=== PATIENT | female | born 1940 | race Hispanic/Latino ===

== ENCOUNTER 2016-05-28 15:38 | Inpatient (IN) | payer MEDICARE ==
[2016-05-28 18:10] LABS: Basophils % (Auto) 0.3 % (0.0-1.8); Eosinophils % (Auto) 0.8 % (0.0-4.3); Hematocrit 40.8 % (30.3-42.9); Hemoglobin 13.6 gm/dl (10.1-14.3); Mean Corpuscular HGB Conc 33 % (30-34); Mean Corpuscular Hemoglobin 31 pg (28-32); Mean Corpuscular Volume 93 fl (79-97); Platelet Count 246 K/mm3 (140-440); Red Cell Distribution Width 13.4 % (13.2-15.2); White Blood Count 15.5 K/mm3 (4.5-11.0)
[2016-05-28 18:24] LABS: Anion Gap 18 mmol/L; BUN/Creatinine Ratio 24.28; Blood Urea Nitrogen 17 mg/dL (7-17); Calcium 9.8 mg/dL (8.4-10.2); Carbon Dioxide 23 mmol/L (22-30); Glucose 110 mg/dL (65-100); Potassium 4.6 mmol/L (3.6-5.0); Sodium 132 mmol/L (137-145)
[2016-05-28 18:31] LABS: Creatine Kinase MB 3.3 ng/mL (0.0-4.0)
[2016-05-28] MEDS ORDERED: NACL ONE (20:10)
[2016-05-28] MEDS ORDERED: ATIVAN IV ONE (20:36)
--- NOTE | 2016-05-28 21:27 | Cat Scan Report ---
FINAL REPORT PROCEDURE: CT ANGIO CHEST TECHNIQUE: Computerized tomographic angiography of the chest was performed after the IV injection of iodinated nonionic contrast including image processing. The image data was postprocessed using 2-dimensional multiplanar reformatted (MPR) and 3-dimensional (MIP and/or volume rendered) techniques. HISTORY: elevated ddimer chest pain. Evaluate pulmonary embolus COMPARISON: No prior studies are available for comparison. FINDINGS: Pulmonary outflow tract, right and left main pulmonary arteries and their proximal branches: Clear, no filling defects seen to suggest pulmonary embolus. Pericardium: No evidence of pericardial effusion. Thoracic aorta: Mild atherosclerotic changes are visualized. No aneurysm or dissection is seen. Coronary arteries: Small calcifications are visualized in the coronary arteries indicating atherosclerotic disease. Mediastinum and hilar regions: Nonspecific subcentimeter lymph nodes are visualized. No pathologically enlarged lymph nodes or masses are identified. Several small calcified lymph nodes are seen overlying the right hilum. Lung Mike: Clear with the exception of a 1 centimeter air cyst in the lingula. Upper abdomen: A large hiatal hernia is present. No acute abnormality is seen in the upper abdomen. Other: None IMPRESSION: No evidence of pulmonary embolus. Prior granulomatous disease. Large hiatal hernia is present. Atherosclerosis coronary arteries.
[2016-05-28] MEDS ORDERED: NORMODYNE 200 MG in D5W 160 ML IV ONE (21:50)
[2016-05-28] MEDS ORDERED: CARDENE DRIP 40 MG/200 ML 40 MG/200 ML BAG IV SCH (22:00)
--- NOTE | 2016-05-28 22:06 | Emergency Department Report ---
ED Chest Pain HPI - General Chief Complaint: Chest Pain Stated Complaint: CHEST PAIN Time Seen by Provider: 05/28/16 20:09 Source: patient Mode of arrival: Ambulatory Limitations: No Limitations - History of Present Illness Initial Comments: 76-year-old female with a past medical history of hypertension and elevated cholesterol presents to the hospital complains of left-sided chest pain workup with days. Pain is in the left chest area under the left breast, sharp, intermittent, and it radiated 4/10 in intensity. Pain is worse with deep inspiration and movement and certain positions. Patient denies associated shortness of breath, nausea, vomiting, diaphoresis, or cough. reports that recently patient was helping with yardwork and pushing and pulling heavy objects which could have contributed to her pain. Patient states she walked 2.4 miles yesterday at the gym without any difficulty. Patient was sent to the ER for evaluation by Dr. Modi fashion designer and Dr. Bennett her primary care doctor was also aware. Dr. Montes called the ED prior to my shift and explained that pt needed evaluation for PE and evaluation for abnormal stress test. Severity scale (0 -10): 4 - Related Data Allergies Allergy/AdvReac Type Severity Reaction Status Date / Time codeine AdvReac Headache Verified 05/28/16 15:55 diazepam [From Valium] AdvReac Unknown Verified 05/28/16 15:55 STIVEN score - Stiven Score Age > 65: (1) Yes Aspirin use within the Past 7 Days: (1) Yes 3 or more CAD Risk Factors: (1) Yes 2 or more Angina events in past 24 hrs: (1) Yes Known CAD with more than 50% Stenosis: (0) No Elevated Cardiac Markers: (0) No ST Deviation Greater than 0.5mm: (0) No STIVEN Score: 4 ED Review of Systems ROS: Stated complaint: CHEST PAIN Other details as noted in HPI Comment: All other systems reviewed and negative Other: Constitutional: No fevers chills or weight loss Eyes: No eye pain visual changes or discharge ENT: No ear pain or throat pain Neck: Denies pain Respiratory: Denies cough wheezing shortness of breath Cardiovascular: as per hpi GI: Denies abdominal pain : Denies dysuria, urinary frequency Musculoskeletal: Denies back pain, joint swelling Skin: Denies rash, lesions, erythema Neurologic: Denies headache, numbness, weakness Psychiatric: Denies suicidal ideation, hallucinations ED Past Medical Hx - Past Medical History Previous Medical History?: Yes Hx Hypertension: Yes Additional medical history: Elevated cholesterol - Surgical History Past Surgical History?: No - Social History Smoking Status: Never Smoker Substance Use Type: None ED Physical Exam - General Limitations: No Limitations - Other Other exam information: General: No limitations, patient is alert in no acute distress Head exam: Atraumatic, normocephalic Eyes exam: Normal appearance, pupils equal reactive to light, extraocular movements intact ENT: Moist mucous membrane, normal oropharynx Neck exam: Normal inspection, full range of motion Respiratory exam: Clear to auscultation bilateral, no wheezes, rales, crackles Cardiovascular: Normal rate and rhythm, chest wall nontender Abdomen: Soft, nondistended, and nontender, with normal bowel sounds, no rebound, or guarding Extremity: Full range of motion normal inspection no deformity, no calf tenderness or edema Back: Normal Inspection, full range of motion, no tenderness Neurologic: Alert, oriented x3, cranial nerves intact, no motor or sensory deficit Psychiatric: normal affect, normal mood Skin: Warm, dry, intact ED Course Vital Signs 05/28/16 05/28/16 05/28/16 15:50 20:12 20:13 Temperature 98.2 F Pulse Rate 73 101 H 95 H Respiratory 22 19 15 Rate Blood Pressure 148/63 182/72 O2 Sat by Pulse 94 97 97 Oximetry 05/28/16 05/28/16 05/28/16 20:15 20:17 20:19 Temperature Pulse Rate 100 H 94 H 91 H Respiratory 20 17 17 Rate Blood Pressure 184/89 184/89 184/89 O2 Sat by Pulse Oximetry 05/28/16 05/28/16 05/28/16 20:21 20:23 20:25 Temperature Pulse Rate 92 H 89 89 Respiratory 18 17 20 Rate Blood Pressure 184/89 184/89 184/89 O2 Sat by Pulse Oximetry 05/28/16 05/28/16 05/28/16 20:27 20:30 20:32 Temperature Pulse Rate 96 H 100 H 97 H Respiratory 17 17 15 Rate Blood Pressure 184/89 184/89 184/95 O2 Sat by Pulse Oximetry 05/28/16 05/28/16 05/28/16 20:33 20:34 20:45 Temperature Pulse Rate 96 H 98 H Respiratory 18 15 18 Rate Blood Pressure 184/95 184/95 O2 Sat by Pulse 98 Oximetry - Reevaluation(s) Reevaluation #1: 05/29/16 pt received ativan 0.5 mg due to nervousness. she reported improvement in sx. no allergic reaction noted 05/29/16 00:17 - Consultations Consultation #1: 05/29/16 DR Bennett called the department and spoke to me and I informed him of positive d-dimer and. She will be going to CT angiogram and admission. ED Medical Decision Making - Lab Data Result diagrams: 05/28/16 17:46 05/28/16 17:46 Lab Results 05/28/16 05/28/16 05/28/16 Range/Units 17:46 17:46 17:46 WBC 15.5 H (4.5-11.0) K/mm3 RBC 4.40 (3.65-5.03) M/mm3 Hgb 13.6 (10.1-14.3) gm/dl Hct 40.8 (30.3-42.9) % MCV 93 (79-97) fl MCH 31 (28-32) pg MCHC 33 (30-34) % RDW 13.4 (13.2-15.2) % Plt Count 246 (140-440) K/mm3 Lymph % (Auto) 15.6 (13.4-35.0) % Barren % (Auto) 6.4 (0.0-7.3) % Eos % (Auto) 0.8 (0.0-4.3) % Baso % (Auto) 0.3 (0.0-1.8) % Lymph # 2.4 (1.2-5.4) K/mm3 [place] # 1.0 H (0.0-0.8) K/mm3 Eos # 0.1 (0.0-0.4) K/mm3 Baso # 0.0 (0.0-0.1) K/mm3 Seg Neutrophils % 76.9 H (40.0-70.0) % Seg Neutrophils # 12.0 H (1.8-7.7) K/mm3 D-Dimer 308.85 H (0-234) ng/mlDDU Sodium 132 L (137-145) mmol/L Potassium 4.6 (3.6-5.0) mmol/L Chloride 96.0 L (98-107) mmol/L Carbon Dioxide 23 (22-30) mmol/L Anion Gap 18 mmol/L BUN 17 (7-17) mg/dL Creatinine 0.7 (0.7-1.2) mg/dL Estimated GFR > 60 ml/min BUN/Creatinine Ratio 24.28 % Glucose 110 H (65-100) mg/dL Calcium 9.8 (8.4-10.2) mg/dL Total Creatine Kinase (30-135) units/L CK-MB (CK-2) (0.0-4.0) ng/mL CK-MB (CK-2) Rel Index (0-4) Troponin T < 0.010 (0.00-0.029) ng/mL 05/28/16 05/28/16 Range/Units 17:46 19:13 WBC (4.5-11.0) K/mm3 RBC (3.65-5.03) M/mm3 Hgb (10.1-14.3) gm/dl Hct (30.3-42.9) % MCV (79-97) fl MCH (28-32) pg MCHC (30-34) % RDW (13.2-15.2) % Plt Count (140-440) K/mm3 Lymph % (Auto) (13.4-35.0) % Barren % (Auto) (0.0-7.3) % Eos % (Auto) (0.0-4.3) % Baso % (Auto) (0.0-1.8) % Lymph # (1.2-5.4) K/mm3 Barren # (0.0-0.8) K/mm3 Eos # (0.0-0.4) K/mm3 Baso # (0.0-0.1) K/mm3 Seg Neutrophils % (40.0-70.0) % Seg Neutrophils # (1.8-7.7) K/mm3 D-Dimer (0-234) ng/mlDDU Sodium (137-145) mmol/L Potassium (3.6-5.0) mmol/L Chloride (98-107) mmol/L Carbon Dioxide (22-30) mmol/L Anion Gap mmol/L BUN (7-17) mg/dL Creatinine (0.7-1.2) mg/dL Estimated GFR ml/min BUN/Creatinine Ratio % Glucose (65-100) mg/dL Calcium (8.4-10.2) mg/dL Total Creatine Kinase 145 H (30-135) units/L CK-MB (CK-2) 3.3 (0.0-4.0) ng/mL CK-MB (CK-2) Rel Index 2.2 (0-4) Troponin T < 0.010 (0.00-0.029) ng/mL - EKG Data -: EKG Interpreted by Me (nsr rate 75, no stemi, no t inv) - EKG Data When compared to previous EKG there are: previous EKG unavailable - Radiology Data Radiology results: image reviewed (cxr: naf) - Medical Decision Making Patient's chest pain sounds atypical in nature. EKG, cardiac enzymes, and CT angiogram in the ED are unremarkable. Patient be admitted for further cardiology evaluation. - Differential Diagnosis PE, HI, unstable angina, atypical chest pain, chest strain Critical Care Time: No Critical care attestation.: If time is entered above; I have spent that time in minutes in the direct care of this critically ill patient, excluding procedure time. ED Disposition Clinical Impression: Chest pain, HTN (hypertension), Hiatal hernia Disposition: OP ADMITTED IP TO THIS HOSP Is pt being admited?: Yes Condition: Stable Time of Disposition: 22:06 (Dr Acevedo/hosp)
[2016-05-28] MEDS ORDERED: SODIUM CHLORIDE FLUSH SYRINGE 10 ML IV PRN (22:33)
[2016-05-28] MEDS ORDERED: MILK OF MAGNESIA PO PRN (22:33)
[2016-05-28] MEDS ORDERED: DULCOLAX PR PRN (22:33)
[2016-05-28] MEDS ORDERED: MORPHINE IV PRN (22:33)
[2016-05-28] MEDS ORDERED: TYLENOL PO PRN (22:33)
[2016-05-28] MEDS ORDERED: ZOFRAN IV PRN (22:33)
--- NOTE | 2016-05-28 22:33 | History and Physical Report ---
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 Patient states she was doing some yardwork, push a heavy trash can, after which she started developed chest pain. Pain is in the left substernal area which she describes as indigestion feeling. She took some medication for rate and felt better. Her symptoms returned this morning and worsened around lunchtime. She describes that her pleuritic chest pain, intermittent, worse with movement , intensity 5/10, no radiation. She denies nausea vomiting, diaphoresis or palpitation. She saw her money room teller who did a stress test and it was intermediate Patient denies cough, abdominal pain, hematochezia, dysuria, frequency, focal weakness, dysarthria, fever chills, polydipsia polyuria, hot or cold intolerance , easy bruisability, or rash or bleeding from mucosal membrane, rhinorrhea, epistaxis, earache, tinnitus, blurry vision, eye discharge, anxiety, depression. Other review of systems negative PAST SURGICAL HISTORY: None SOCIAL HISTORY: Denies alcohol, tobacco, drugs FAMILY HISTORY: Hypertension Medications and Allergies Allergies Allergy/AdvReac Type Severity Reaction Status Date / Time codeine AdvReac Headache Verified 05/28/16 15:55 diazepam [From Valium] AdvReac Unknown Verified 05/28/16 15:55 Home Medications Medication Instructions Recorded Confirmed Last Taken Type Amlodipine Besylate [Norvasc] 5 mg PO BID 05/29/16 05/29/16 Unknown History Aspirin EC [Aspirin Enteric Coated 81 mg PO QDAY 05/29/16 05/29/16 Unknown History TAB] Metoprolol Succinate 100 mg PO QDAY 05/29/16 05/29/16 Unknown History Rosuvastatin Calcium 10 mg PO QDAY 05/29/16 05/29/16 Unknown History Sertraline HCl [Zoloft] 25 mg PO QAM 05/29/16 05/29/16 Unknown History Exam - Constitutional Vitals: Temp Pulse Resp BP Pulse Ox 98.2 F 98 H 18 184/95 98 05/28/16 15:50 05/28/16 20:34 05/28/16 20:45 05/28/16 20:34 05/28/16 20:45 Results - Labs CBC & Chem 7: 05/29/16 04:23 05/29/16 04:23 Labs: Abnormal lab results 05/28/16 05/28/16 05/28/16 Range/Units 17:46 17:46 17:46 WBC 15.5 H (4.5-11.0) K/mm3 [place] # 1.0 H (0.0-0.8) K/mm3 Seg Neutrophils % 76.9 H (40.0-70.0) % Seg Neutrophils # 12.0 H (1.8-7.7) K/mm3 D-Dimer 308.85 H (0-234) ng/mlDDU Sodium 132 L (137-145) mmol/L Chloride 96.0 L (98-107) mmol/L Glucose 110 H (65-100) mg/dL Total Creatine Kinase (30-135) units/L 05/28/16 Range/Units 17:46 WBC (4.5-11.0) K/mm3 [place] # (0.0-0.8) K/mm3 Seg Neutrophils % (40.0-70.0) % Seg Neutrophils # (1.8-7.7) K/mm3 D-Dimer (0-234) ng/mlDDU Sodium (137-145) mmol/L Chloride (98-107) mmol/L Glucose (65-100) mg/dL Total Creatine Kinase 145 H (30-135) units/L - Imaging and Cardiology EKG: image reviewed Chest x-ray: image reviewed CT scan - chest: report reviewed Assessment and Plan Chest pain with abnormal stress test Hypertension Hyperlipidemia Admit to medicine Start aspirin, morphine, DVT prophylaxis consult cardiology
[2016-05-29 02:09] LABS: Creatine Kinase MB 2.5 ng/mL (0.0-4.0)
[2016-05-29 04:55] LABS: Basophils % (Auto) 0.4 % (0.0-1.8); Eosinophils % (Auto) 1.3 % (0.0-4.3); Hematocrit 39.6 % (30.3-42.9); Hemoglobin 13.4 gm/dl (10.1-14.3); Mean Corpuscular HGB Conc 34 % (30-34); Mean Corpuscular Hemoglobin 31 pg (28-32); Mean Corpuscular Volume 91 fl (79-97); Platelet Count 220 K/mm3 (140-440); Red Blood Count 4.35 M/mm3 (3.65-5.03); Red Cell Distribution Width 13.4 % (13.2-15.2); White Blood Count 9.6 K/mm3 (4.5-11.0)
[2016-05-29 04:58] LABS: Anion Gap 18 mmol/L; BUN/Creatinine Ratio 21.66; Blood Urea Nitrogen 13 mg/dL (7-17); Calcium 8.9 mg/dL (8.4-10.2); Carbon Dioxide 24 mmol/L (22-30); Chloride 99.3 mmol/L (98-107); Glucose 123 mg/dL (65-100); Potassium 3.6 mmol/L (3.6-5.0); Sodium 138 mmol/L (137-145)
--- NOTE | 2016-05-29 07:46 | XRay Report ---
ROUTINE CHEST, TWO VIEWS: HISTORY: chest pain. The trachea, heart, mediastinal contour, lung thibodeaux and bony thorax are unremarkable. IMPRESSION: Unremarkable chest x-ray.
--- NOTE | 2016-05-29 07:49 | Admit Criteria Form ---
Admission Criteria Documentation: CARDIOLOGY GRG Clinical Indications for Admission to Inpatient Care ( Place 'X' for any and all applicable criteria): Hospital admission is needed for appropriate care of the patient because of ANY ONE of the following (1): [ ] I. Hemodynamic instability as indicated by ALL of the following (1)(2)(3) (4)(5) [ ]a) Vital signs or other findings not as expected for chronic patient condition or baseline [ ]b) Instability indicated by ANY ONE of the following: [ ]i) Hypotension [ ]ii) Symptomatic Tachycardia unresponsive to treatment ( e.g., analgesia, fluids, sedation as indicated) [ ]iii) Inadequate perfusion indicated by ANY ONE of the following: [ ] 1) Lactic acidosis (> 2 mmol/L) [ ] 2) New abnormal capillary refill (> 3 seconds) [ ] 3) Reduced urine output [ ] 4) New altered mental status [ ]iv) Orthostatic vital sign changes unresponsive to treatment (e.g., fluids) [ ]v) IV inotropic or vasopressor medication required to maintain adequate blood pressure or perfusion [ ] II. Severe heart failure as indicated by ANY ONE of the following(17)(18) [ ]a) Respiratory distress [ ]b) Hypotension [ ]c) Anasarca (refractory to outpatient therapy) [ ]d) Cardiac arrhythmias of immediate concern [ ]e) Myocardial ischemia [ ] III. Cardiac arrhythmias or findings of immediate concern indicated by ANY ONE of the following (19)(20): [ ] a) Heart rhythms that are inherently dangerous or unstable indicated by ANY ONE of the following (21)(22)(23): [ ] i) Resuscitated ventricular fibrillation or cardiac arrest [ ] ii) Ventricular escape rhythm [ ] iii) Sustained ventricular tachycardia (30 seconds or more of ventricular rhythm at greater than 100 beats per minute) [ ] iv) Nonsustained ventricular tachycardia and ANY ONE of the following: [ ] 1) Suspected cardiac ischemia as cause or consequence of ventricular tachycardia [ ] 2) In setting of acute myocarditis [ ] b) Unstable cardiac conduction defects indicated by ANY ONE of the following(23)(24)(25) [ ] i) Type II second-degree atrioventricular block [ ]ii) Third-degree atrioventricular block [ ]iii) New-onset left bundle branch block with suspected myocardial ischemia [ ]c) Any heart rhythm and ANY ONE of the following (21)(22)(26)(27) (28) [ ] i) Continuous long-term ECG monitoring needed (e.g., initiation of drug requiring monitoring for more than 24 hours) [ ] ii) Patient has automatic implanted cardioverter defibrillator that is repeatedly firing, malfunctioning, or in need of immediate adjustment of settings beyond the scope of ambulatory or observation care [ ]d) Heart rhythms of concern due to ANY ONE of the following: [ ] i) Hypotension [ ] ii) Respiratory distress [ ] iii) Association with other significant symptoms (e.g., bradycardia with syncope or ongoing dizziness, supraventricular tachycardia with chest pain (14)(15)(17) [ ] IV. Monitoring for cardiac contusion beyond the scope of observation care needed [A](30)(31)(32) [ ] V. Surgical or device complication (e.g., valve replacement complication , pacemaker dysfunction) (35)(41)(44)(45)(46) [ ] . Inpatient palliative care needed. [B](49) Also use Inpatient Palliative Care Criteria [ ] VII. Nonbacterial thrombotic (marantic) endocarditis (36)(43)(47)(48) [X ] VIII. Cardiology condition, symptom, or finding for which emergency and observation care has failed or are not considered appropriate. [ ] IX. Acute valvular disease requiring inpatient as indicated by ANY ONE of the following (41) [ ]a) Acute valvular regurgitation (42) [ ]b) Noninfectious valvulitis (43) [ ]c) Obstructive valve thrombosis [ ]d) Paravalvular leak [ ]e) Other significant valvular disorder remaining after emergency or observation level of care (as appropriate) [ ]X. Pericardial disease requiring inpatient treatment as indicated by ANY ONE of the following (33)(34)(35)(36)(37) [ ]a) Suspected tamponade (38)(39)(40) [ ]b) Hemopericardium [ ]c) Other significant pericardial disorder remaining after emergency or observation level of care (as appropriate) [ ] XI. Cardiac ischemia beyond scope of emergency and observation care. [ ] XII. Hypertension requiring inpatient treatment as indicated by ANY ONE of the following (6)(7)(8) [ ]a) SBP greater than 220 mm Hg or DBP greater than 120 mmHg despite treatment [ ]b) SBP greater than 140 mm Hg or DBP greater than 100 mm Hg with evidence of acute end organ damage as indicated by ANY ONE of the following [ ] i) Altered mental status [ ] ii) Acute renal failure as indicated by new onset of ANY ONE of the following (9)(10)(11)(12)(13) [ ]1) 3-fold rise in serum creatinine from baseline [ ]2) Serum creatinine greater than 4 mg/dL ( 354 micromoles/L) with acute rise greater than 0.5 mg/dL (44.2 micromoles/L) [ ]3) Reduction of more than 75% in estimated glomerular filtration rate from baseline [ ]4) Estimated glomerular filtration rate less than 35 mL/min/1.73m2 (0.59 mL/sec/1.73m2) in child up to 18 years of age [ ]5) Cessation of urine output indicated by ALL of the following [ ]A. Adequate volume status [ ]B. Inadequate urine output as indicated by ANY ONE of the following [ ]a. Urine output less than 0.3 mL/kg/hr for 24 hours [ ]b. Anuria (urine output less than 0.1 mL/kg/hr) for 12 hours [ ] iii) Aortic dissection [ ] iv) Myocardial Ischemia [ ] v) Left ventricular heart failure [ ]vi) Retinal Hemorrhage [ ]vii) Other significant finding [ ]c) Hypertension in child requiring inpatient treatment as indicated by ALL of the following(14)(15)(16) [ ] i) Outpatient treatment not effective, not available, or not appropriate [ ]ii) SBP or DBP greater than 95th percentile for age [ ]iii) Evidence of acute end organ damage as indicated by ANY ONE of the following [ ]1) Altered mental status [ ]2) Acute renal failure as indicated by new onset of ANY ONE of the following(9)(10)(11)(12)(13) [ ]A. 3-fold rise in serum creatinine from baseline [ ]B. Serum creatinine greater than 4 mg/dL (354 micromoles/L) with acute rise greater than 0.5 mg/dL (44.2 micromoles/L) [ ]C. Reduction of more than 75% in estimated glomerular filtration rate from baseline [ ]D. Estimated glomerular filtration rate less than 35 mL/min/1.73m2 (0.59 mL/sec/1.73m2) in child up to 18 years of age [ ]E. Cessation of urine output indicated by ALL of the following [ ]a. Adequate volume status [ ]b. Inadequate urine output as indicated by ANY ONE of the following [ ]i) Urine output less than 0.3 mL/kg/hr for 24 hours [ ]ii) Anuria ( urine output less than 0.1 mL/kg/hr) for 12 hours [ ]3) Severe headache [ ]4) Visual disturbance [ ]5) Retinal hemorrhage [ ]6) Other significant finding [ ]XIII. Complications of transplanted heart indicated by ANY ONE of the following(61): [ ]a) Acute graft rejection requiring inpatient management (eg, intravenous immunosuppression)(62)(63) [ ]b) Acute graft heart failure indicated by ANY ONE of the following(64): [ ]i) Hemodynamic instability [ ]ii) Cardiac arrhythmias of immediate concern [ ]iii) Pulmonary edema that is very severe (eg, mechanical ventilation needed, imminent or likely, need for 100% oxygen to keep oxygen saturation above 90%) [ ]iv) Pulmonary edema that is persistent as indicated by ALL of the following: [ ]1) New need for oxygen therapy to keep oxygen saturation above 90% (or increased FiO2 need from baseline) [ ]2) Has not improved sufficiently with emergency department or observation care IV diuretics or other heart failure treatments[E] [ ]v) Altered mental status that is severe or persistent [ ]vi) Increased creatinine (new on laboratory test) with reduction of more than 50% in estimated glomerular filtration rate from baseline [ ]vii) Progressively (ongoing) rising creatinine (known from past laboratory test) with reduction of more than 25% in estimated glomerular filtration rate from baseline [ ]viii) Acute renal failure [ ]ix) Acute peripheral ischemia (eg, examination shows pulseless, cool, mottled, or cyanotic extremity) [ ]x) Pulmonary artery catheter monitoring needed [ ]xi) Other sign or symptom of heart failure requiring inpatient treatment (ie, too severe or not responsive to outpatient and observation care treatment) [ ]c) Infection requiring inpatient management (eg, Hemodynamic instability, need for intravenous antimicrobial treatment)(66)(67)(68)(69)(70) [ ]d) Cardiac allograft vasculopathy requiring inpatient management ( eg evidence of cardiac ischemia)(71) [ ]e) Other complication of transplanted heart (eg, stroke, severe pulmonary hypertension, severe valvular dysfunction) requiring inpatient management(72) The original [facility] [employer] content created by [facility] has been revised. The portions of the content which have been revised are identified through the use of italic text or in bold, and [facility] has neither reviewed nor approved the modified material. All other unmodified content is copyright [facility] [employer]. Please see references footnoted in the original [facility] [employer] edition 2016 Admission Criteria Met: Yes
[2016-05-29 09:31] LABS: Creatine Kinase MB 1.7 ng/mL (0.0-4.0)
--- NOTE | 2016-05-29 09:46 | Ultrasound Report ---
ULTRASOUND ABDOMEN LIMITED INDICATION: Right upper quadrant pain. COMPARISON: None similar. FINDINGS: Right upper quadrant ultrasound suggests normal hepatic contours without focal suspicious lesions or biliary dilatation. Subtle hepatic coarsening though possible. Mild gallbladder sludge and few small non-shadowing echogenicities/polyps measuring up to 3 mm on some images also questioned. No definite gallstones, pericholecystic fluid or positive sonographic Obrien sign. Gallbladder wall thickness is 2.7 mm. Common bile duct is 4.7 mm. Normal imaged pancreas, IVC and nonaneurysmal abdominal aorta. Nonhydronephrotic right kidney estimated at 9.9 x 4.2 x 4.7 cm with cortical thickness of 1.6 cm. Mild increased renal cortical echogenicity and a small nonspecific echogenic focus toward the lower pole also not excluded. CONCLUSION: No acute right upper quadrant sonographic abnormality, though various findings as mild gallbladder sludge, slight hepatic coarsening and subtle underlying medical renal disease questioned, amongst others, as above. Please correlate. Thank you for the opportunity to participate in this patient's care.
[2016-05-29] MEDS ORDERED: LOVENOX SUB-Q SCH (10:00)
[2016-05-29] MEDS ORDERED: ECOTRIN PO SCH (10:00)
[2016-05-29] MEDS ORDERED: WATER FOR INJ (PF) 10 ML ONE (13:21)
[2016-05-29] MEDS ORDERED: KINEVAC IV ONE ×2 (13:21→13:53)
[2016-05-29] MEDS ORDERED: WATER FOR INJ (PF) IV ONE (13:55)
[2016-05-29] MEDS ORDERED: D5W/0.45% NACL/KCL 20 MEQ 20 MEQ/1,000 ML BAG IV SCH (14:00)
--- NOTE | 2016-05-29 14:54 | Nuclear Medicine Report ---
HEPATOBILIARY SCAN: History: Right upper quadrant abdominal pain. Following the injection of the radionuclide, serial scanning was obtained over the right upper quadrant. Initial imaging of the liver demonstrates a relatively normal activity pattern. Progressive concentration of the radionuclide in the bile ducts, with filling of both the gallbladder and small bowel, is identified within a normal time period. The gallbladder ejection fraction is severely decreased measuring 6%. The patient reports the same symptoms of pain and cramps were reproduced with CCK. IMPRESSION: The cystic duct is patent. Decreased gallbladder ejection fraction measuring 6%. Symptomatology as described.
--- NOTE | 2016-05-29 15:19 | Consultation ---
<LAMONTE RICHARDS - Last Filed: 05/29/16 15:14> History of Present Illness Consult date: 05/29/16 Consult reason: chest pain History of present illness: This is a 76yr old woman who presented to the ED with complaints of chest pain admitted for rule out pulmonary embolism. A chest CT scan reports no evidence of pulmonary embolism. Cardiac consultation requested for chest pain. Patient describes her initial pain under her left breast. She now reports RUQ abdominal pain. Patient reports she no longer has pain under her left breast. An ECG done in the ED shows a normal sinus rhythm. Cycled cardiac enzymes are normal. Patient was seen by Dr Teague at out office on yesterday. At that time she had a treadmill stress test. She exercised for 6 minutes. There were no acute ischemic EKG changes noted. Medications and Allergies Allergies Allergy/AdvReac Type Severity Reaction Status Date / Time codeine AdvReac Headache Verified 05/28/16 15:55 diazepam [From Valium] AdvReac Unknown Verified 05/28/16 15:55 Home Medications Medication Instructions Recorded Confirmed Last Taken Type Amlodipine Besylate [Norvasc] 5 mg PO BID 05/29/16 05/29/16 Unknown History Aspirin EC [Aspirin Enteric Coated 81 mg PO QDAY 05/29/16 05/29/16 Unknown History TAB] Metoprolol Succinate 100 mg PO QDAY 05/29/16 05/29/16 Unknown History Rosuvastatin Calcium 10 mg PO QDAY 05/29/16 05/29/16 Unknown History Sertraline HCl [Zoloft] 25 mg PO QAM 05/29/16 05/29/16 Unknown History Active Meds: Active Medications Acetaminophen (Tylenol) 650 mg PO Q4H PRN PRN Reason: Pain MILD(1-3)/Fever >100.5/GERMAN Aspirin (Ecotrin) 325 mg PO QDAY [facility] Last Admin: 05/29/16 10:42 Dose: 325 mg Bisacodyl (Dulcolax) 10 mg [place] QDAY PRN PRN Reason: Constipation unrelieved by MOM Enoxaparin Sodium (Lovenox) 40 mg SUB-Q QDAY [facility] Last Admin: 05/29/16 10:42 Dose: 40 mg Potassium Chloride/Dextrose/Sod Cl (D5w/0.45% Nacl/Kcl 20 Meq) 20 meq in 1,000 mls @ 75 mls/hr IV DIRECT GARY Magnesium Hydroxide (Milk Of Magnesia) 30 ml PO Q4H PRN PRN Reason: Constipation Morphine Sulfate (Morphine) 2 mg IV Q4H PRN PRN Reason: Pain, Moderate (4-6) Ondansetron HCl (Zofran) 4 mg IV Q8H PRN PRN Reason: N/V unrelieved by Reglan Sodium Chloride (Sodium Chloride Flush Syringe 10 Ml) 10 ml IV PRN PRN PRN Reason: LINE FLUSH Physical Examination Vital Signs Temp Pulse Resp BP Pulse Ox 98.2 F 73 22 148/63 94 05/28/16 15:50 05/28/16 15:50 05/28/16 15:50 05/28/16 15:50 05/28/16 15:50 General appearance: no acute distress HEENT: Positive: PERRL Neck: Positive: trachea midline Cardiac: Positive: Reg Rate and Rhythm Results 05/29/16 04:23 05/29/16 04:23 Cardiac Enzymes 05/29/16 05/29/16 Range/Units 01:31 08:59 CK-MB (CK-2) 2.5 1.7 (0.0-4.0) ng/mL Lipids 05/29/16 Range/Units 00:00 Triglycerides 65 (2-149) mg/dL Cholesterol 155 (50-199) mg/dL HDL Cholesterol 65 H (40-59) mg/dL Cholesterol/HDL Ratio 2.38 % CBC 05/29/16 Range/Units 04:23 WBC 9.6 (4.5-11.0) K/mm3 RBC 4.35 (3.65-5.03) M/mm3 Hgb 13.4 (10.1-14.3) gm/dl Hct 39.6 (30.3-42.9) % Plt Count 220 (140-440) K/mm3 Lymph # 1.8 (1.2-5.4) K/mm3 [place] # 0.8 (0.0-0.8) K/mm3 Eos # 0.1 (0.0-0.4) K/mm3 Baso # 0.0 (0.0-0.1) K/mm3 Comprehensive Metabolic Panel 05/29/16 Range/Units 04:23 Sodium 138 (137-145) mmol/L Potassium 3.6 D (3.6-5.0) mmol/L Chloride 99.3 (98-107) mmol/L Carbon Dioxide 24 (22-30) mmol/L BUN 13 (7-17) mg/dL Creatinine 0.6 L (0.7-1.2) mg/dL Glucose 123 H (65-100) mg/dL Calcium 8.9 (8.4-10.2) mg/dL Assessment and Plan Chest pain, atypical no evidence of PE on chest CTA normal outpatient TMST 05/28/16 Abdominal pain Hypertension <WINSOME RODRIGUEZ - Last Filed: 05/30/16 13:10> Physical Examination Vital Signs Temp Pulse Resp BP Pulse Ox 98.2 F 73 22 148/63 94 05/28/16 15:50 05/28/16 15:50 05/28/16 15:50 05/28/16 15:50 05/28/16 15:50 Results 05/29/16 04:23 05/29/16 04:23 Assessment and Plan - Patient Problems (1) Chest pain Status: Acute Qualifiers: Chest pain type: C Plan to address problem: Since atypical chest pain was determined to be likely related to gallbladder disease. Consultation has been obtained with surgery an outpatient evaluation and management has been established. On discharge, follow up with Dr. Montes her primary community director is recommended.
--- NOTE | 2016-05-29 15:40 | Consultation ---
History of Present Illness Consult date: 05/29/16 Reason for consult: abdominal pain - History of present illness History of present illness: 76yo F with 1 day LUQ to epigastric pain. She denies nausea and vomiting. + indigestion. She denies RUQ pain. Past History Past Medical History: hypertension Medications and Allergies Allergies Allergy/AdvReac Type Severity Reaction Status Date / Time codeine AdvReac Headache Verified 05/28/16 15:55 diazepam [From Valium] AdvReac Unknown Verified 05/28/16 15:55 Home Medications Medication Instructions Recorded Confirmed Last Taken Type Amlodipine Besylate [Norvasc] 5 mg PO BID 05/29/16 05/29/16 Unknown History Aspirin EC [Aspirin Enteric Coated 81 mg PO QDAY 05/29/16 05/29/16 Unknown History TAB] Metoprolol Succinate 100 mg PO QDAY 05/29/16 05/29/16 Unknown History Rosuvastatin Calcium 10 mg PO QDAY 05/29/16 05/29/16 Unknown History Sertraline HCl [Zoloft] 25 mg PO QAM 05/29/16 05/29/16 Unknown History Active Meds: Active Medications Acetaminophen (Tylenol) 650 mg PO Q4H PRN PRN Reason: Pain MILD(1-3)/Fever >100.5/GERMAN Aspirin (Ecotrin) 325 mg PO QDAY [facility] Last Admin: 05/29/16 10:42 Dose: 325 mg Bisacodyl (Dulcolax) 10 mg [place] QDAY PRN PRN Reason: Constipation unrelieved by MOM Enoxaparin Sodium (Lovenox) 40 mg SUB-Q QDAY [facility] Last Admin: 05/29/16 10:42 Dose: 40 mg Potassium Chloride/Dextrose/Sod Cl (D5w/0.45% Nacl/Kcl 20 Meq) 20 meq in 1,000 mls @ 75 mls/hr IV DIRECT GARY Magnesium Hydroxide (Milk Of Magnesia) 30 ml PO Q4H PRN PRN Reason: Constipation Morphine Sulfate (Morphine) 2 mg IV Q4H PRN PRN Reason: Pain, Moderate (4-6) Ondansetron HCl (Zofran) 4 mg IV Q8H PRN PRN Reason: N/V unrelieved by Reglan Sodium Chloride (Sodium Chloride Flush Syringe 10 Ml) 10 ml IV PRN PRN PRN Reason: LINE FLUSH Review of Systems All systems: negative Exam Vital Signs Temp Pulse Resp BP Pulse Ox 98.2 F 73 22 148/63 94 05/28/16 15:50 05/28/16 15:50 05/28/16 15:50 05/28/16 15:50 05/28/16 15:50 Vital Signs Temp 98.6 F 05/29/16 14:30 Pulse 78 05/29/16 14:45 Resp 21 05/29/16 14:45 BP 122/50 05/29/16 14:45 Pulse Ox 92 05/29/16 14:45 Intake & Output 05/28/16 05/29/16 05/29/16 18:59 06:59 18:59 Intake Total 5 Balance 5 Weight 67.132 kg 67.132 kg 67.132 kg Intake: IV 5 Left Antecubital 5 - General physical appearance Positive: well developed, no distress, no pain - Eyes Negative: icteric - Neck Positive: no masses - Respiratory Positive: clear to auscultation - Cardiovascular Rhythm: regular - Abdomen Abdomen: Present: soft. Absent: tender, distended, masses - Neurologic Neurologic: alert and oriented to time, place and person Results - Labs 05/29/16 04:23 05/29/16 04:23 Abnormal lab results 05/29/16 05/29/16 05/29/16 Range/Units 00:00 04:23 04:23 [place] % (Auto) 8.6 H (0.0-7.3) % Seg Neutrophils % 71.1 H (40.0-70.0) % Creatinine 0.6 L (0.7-1.2) mg/dL Glucose 123 H (65-100) mg/dL HDL Cholesterol 65 H (40-59) mg/dL Diabetes panel 05/29/16 05/29/16 Range/Units 00:00 04:23 Sodium 138 (137-145) mmol/L Potassium 3.6 D (3.6-5.0) mmol/L Chloride 99.3 (98-107) mmol/L Carbon Dioxide 24 (22-30) mmol/L BUN 13 (7-17) mg/dL Creatinine 0.6 L (0.7-1.2) mg/dL Glucose 123 H (65-100) mg/dL Calcium 8.9 (8.4-10.2) mg/dL Triglycerides 65 (2-149) mg/dL HDL Cholesterol 65 H (40-59) mg/dL Calcium panel 05/29/16 Range/Units 04:23 Calcium 8.9 (8.4-10.2) mg/dL Pituitary panel 05/29/16 Range/Units 04:23 Sodium 138 (137-145) mmol/L Potassium 3.6 D (3.6-5.0) mmol/L Chloride 99.3 (98-107) mmol/L Carbon Dioxide 24 (22-30) mmol/L BUN 13 (7-17) mg/dL Creatinine 0.6 L (0.7-1.2) mg/dL Glucose 123 H (65-100) mg/dL Calcium 8.9 (8.4-10.2) mg/dL Adrenal panel 05/29/16 Range/Units 04:23 Sodium 138 (137-145) mmol/L Potassium 3.6 D (3.6-5.0) mmol/L Chloride 99.3 (98-107) mmol/L Carbon Dioxide 24 (22-30) mmol/L BUN 13 (7-17) mg/dL Creatinine 0.6 L (0.7-1.2) mg/dL Glucose 123 H (65-100) mg/dL Calcium 8.9 (8.4-10.2) mg/dL - Imaging US - abdomen: report reviewed (no gallstones) Additional studies: HIDA scan EF 6 Assessment and Plan - Patient Problems (1) Biliary dyskinesia Current Visit: Yes Status: Acute Plan to address problem: No evidenc of acute choleycystitis I recommend follow up in the office for elective surgery as needed Office contact information given to patient (2) Hiatal hernia Current Visit: Yes Status: Acute
--- NOTE | 2016-05-29 17:13 | Discharge Summary ---
Providers - Providers Date of Admission: 05/28/16 22:33 Date of discharge: 05/29/16 Attending physician: YOSI MARTINEZ MD 05/29/16 10:07 Consult to Physician [CONS] Routine Consulting Provider: RACQUEL AGUILAR Reason For Exam: RUQ pain/sludge in gallbladder Place consult to:: jackeline Notified:: y Time called:: 10:08 Comment:: awaiting call back 05/29/16 15:00 Consult to Physician [CONS] Routine Consulting Provider: TRISTIAN ALLISON Reason For Exam: RUQ pain/ sludge in gallbladder Place consult to:: Notified:: Ara JOSE Moise Phone number called:: [phone] Was contact made?: Yes If yes, spoke with:: Ara Moise MA Time called:: 15:05 Comment:: verification engineer Primary care physician: RAY CASH Hospitalization Reason for admission: chest pain Condition: Stable Hospital course: 76 -year-old woman with a history of hypertension, hyperlipidemia was 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 Patient states she was doing some yardwork, push a heavy trash can, after which she started developed chest pain. Pain is in the left substernal area which she describes as indigestion feeling. She took some medication for rate and felt better. Her symptoms returned this morning and worsened around lunchtime. She describes that her pleuritic chest pain, intermittent, worse with movement , intensity 5/10, no radiation. She denies nausea vomiting, diaphoresis or palpitation. She saw her logistic manager who did a stress test and it was intermediate Patient denies cough, abdominal pain, hematochezia, dysuria, frequency, focal weakness, dysarthria, fever chills, polydipsia polyuria, hot or cold intolerance , easy bruisability, or rash or bleeding from mucosal membrane, rhinorrhea, epistaxis, earache, tinnitus, blurry vision, eye discharge, anxiety, depression. Other review of systems negative She was seen by cardiology pain had resolved patient was also seen by surgery. Stress test was done and was unremarkable. She currently stable for discharge. Recommended to follow with surgery outpatient for elective cholecystectomy. Discharge diagnosis * Biliary dyskinesia * Abdominal pain secondary to above * Hypertension * Hyperlipidemia * Atypical chest pain likely secondary to costochondritis from referred pain Disposition: DISCHARGED TO HOME OR SELFCARE Time spent for discharge: 35 mins Core Measure Documentation - Palliative Care Palliative Care/ Comfort Measures: Not Applicable - Core Measures Any of the following diagnoses?: none - VTE Discharge Requirements Deep Vein Thrombosis/Pulmonary Embolism Present on Admission: No Exam - Physical Exam Narrative exam: VITAL SIGNS: Reviewed. GENERAL: The patient appeared well nourished and normally developed. Vital signs as documented. HEAD: No signs of head trauma. EYES: Pupils are equal. Extraocular motions intact. EARS: Hearing grossly intact. MOUTH: Oropharynx is normal. NECK: No adenopathy, no JVD. CHEST: Chest with clear breath sounds bilaterally. No wheezes, rales, or rhonchi. CARDIAC: Regular rate and rhythm. S1 and S2, without murmurs, gallops, or rubs. VASCULAR: No Edema. Peripheral pulses normal and equal in all extremities. ABDOMEN: Soft, without detectable tenderness. No sign of distention. No rebound or guarding, and no masses palpated. Bowel Sounds normal. MUSCULOSKELETAL: Good range of motion of all major joints. Extremities without clubbing, cyanosis or edema. NEUROLOGIC EXAM: Alert and oriented x 3. No focal sensory or strength deficits. Speech normal. Follows commands. PSYCHIATRIC: Mood normal. SKIN: No rash or lesions. - Constitutional Vitals: Temp Pulse Resp BP Pulse Ox 98.6 F 78 21 122/50 92 05/29/16 14:30 05/29/16 14:45 05/29/16 14:45 05/29/16 14:45 05/29/16 14:45 Plan Activity: advance as tolerated, fall precautions Diet: low fat Special Instructions: record blood sugar diary Follow up with: RAY CASH MD [Primary Care Provider] - 3-5 Days TRISTIAN ALLISON MD [Staff Physician] - 7 Days WINSOME RODRIGUEZ MD [Staff Physician] - 7 Days
[2016-05-29 17:34] VITALS: BP 115/43
== END 2016-05-29 17:18 | disposition home or self-care (01) | DRG 206 ==
LOC: ED 15:38 → 4A 22:33
PROVIDERS: ADMIT Internal Medicine; ATTEND Internal Medicine
DX: M94.0 Chondrocostal junction syndrome [Tietze] (principal); E78.5 Hyperlipidemia, unspecified; K82.8 Other specified diseases of gallbladder; I10 Essential (primary) hypertension; K44.9 Diaphragmatic hernia without obstruction or gangrene; E78.00 Pure hypercholesterolemia, unspecified; Z88.6 Allergy status to analgesic agent; Z88.8 Allergy status to other drugs, medicaments and biological substances; Z82.49 Family history of ischemic heart disease and other diseases of the circulatory system; Z79.82 Long term (current) use of aspirin
CPT/HCPCS: 36415; 71020; 71275; 76705; 78227; 80048; 80061; 82550; 82553; 84484; 85025; 85379; 93005; 93010; A9537; J1650; J2060; J2805; Q9967

== ENCOUNTER 2016-07-21 10:07 | Outpatient (CLI) | payer MEDICARE ==
--- NOTE | 2016-07-21 13:12 | Mammography Report ---
BILATERAL DIGITAL SCREENING MAMMOGRAM with CAD : 07/21/16 10:07:00 CLINICAL: Routine screening. COMPARISON:06/28/15 FINDINGS: The breasts are heterogeneously dense, which may obscure small masses. No mass, architectural distortion or suspicious calcifications. IMPRESSION: No mammographic evidence of malignancy. BI-RADS CATEGORY: 2 -- Benign RECOMMENDATION: Routine mammographic screening in one year. COMMENT: Patient follow-up letters are generated by our [employer] application.
== END 2016-07-21 10:08 | disposition home or self-care (01) ==
LOC: SPVWC 10:07
PROVIDERS: ATTEND Internal Medicine
DX: Z12.31 Encounter for screening mammogram for malignant neoplasm of breast (principal)
CPT/HCPCS: 77067; G0202

== ENCOUNTER 2017-11-30 11:15 | Outpatient (CLI) | payer MEDICARE ==
--- NOTE | 2017-11-30 16:23 | Mammography Report ---
BILATERAL DIGITAL SCREENING MAMMOGRAM with CAD : 11/30/17 11:15:00 CLINICAL: Routine screening. COMPARISON:07/21/16 FINDINGS: The breasts are heterogeneously dense, which may obscure small masses.Scattered bilateral benign calcifications and bilateral benign vascular calcifications. No mass, architectural distortion or suspicious calcifications. IMPRESSION: No mammographic evidence of malignancy. BI-RADS CATEGORY: 2 -- Benign RECOMMENDATION: Routine mammographic screening in one year. COMMENT: Patient follow-up letters are generated by our [employer] application.
== END 2017-11-30 11:16 | disposition home or self-care (01) ==
LOC: SPVWC 11:15
DX: Z12.31 Encounter for screening mammogram for malignant neoplasm of breast (principal); I10 Essential (primary) hypertension
CPT/HCPCS: 77067

== ENCOUNTER 2018-12-05 13:36 | Outpatient (CLI) | payer MEDICARE ==
--- NOTE | 2018-12-07 14:12 | Mammography Report ---
DIGITAL SCREENING MAMMOGRAM WITH CAD, 12/05/2018 INDICATION: Routine screening mammography. TECHNIQUE: Digital bilateral 2D mammography was obtained in the craniocaudal and mediolateral obliq ue projections. This examination was interpreted with the benefit of Computer-Aided Detection analysi s. COMPARISON: 06/28/2015 and 11/30/2017 FINDINGS: Breast Density: The breasts are heterogeneously dense, which may obscure small masses. There is no evidence of dominant mass, suspicious calcifications or architectural distortion in eithe r breast. Bilateral benign calcifications, some of which are arterial. IMPRESSION: No mammographic evidence of malignancy. Follow up recommendation: Routine yearly BI-RADS Category 2: Benign. A "normal" or negative report should not discourage follow up or biopsy of a clinically significant f inding. A written summary of these findings will be mailed to the patient. The patient will be entered into a mammography reporting system which will generate a reminder letter for the patient's next appointmen t at the appropriate interval. The [employer] recommends yearly mammograms starting at age 40 and continuing as l lety as a woman is in good health. Breast MRI is recommended for women with an approximate 20-25% or greater lifetime risk of breast cancer, including women with a strong family history of breast or ova bj cancer or who have been treated for Hodgkin's disease. Signer Name: Chandler Gerber MD Signed: 12/07/2018 2:07 PM Workstation Name: [id number]
== END 2018-12-05 13:37 | disposition home or self-care (01) ==
LOC: SPVWC 13:36
PROVIDERS: ATTEND Internal Medicine
DX: Z12.31 Encounter for screening mammogram for malignant neoplasm of breast (principal)
CPT/HCPCS: 77067

== ENCOUNTER 2019-12-13 09:47 | Outpatient (CLI) | payer MEDICARE ==
--- NOTE | 2019-12-13 14:53 | Mammography Report ---
BILATERAL DIGITAL SCREENING MAMMOGRAM WITH CAD HISTORY: SCREENING MAMMO TECHNIQUE: Routine digital mammographic imaging performed. This examination was interpreted with chung hearn benefit of Computer-aided Detection analysis. COMPARISON: 12/05/2018, 11/30/2017, 07/21/2016, 10/17/2013, 02/01/2013. FINDINGS: Breast Density: heterogeneously dense breast parenchymal pattern which somewhat lessens the sensitivi ty of the evaluation. Digital CC and MLO views demonstrate no mammographic evidence of malignancy. Right lower inner breas t focal asymmetry shows little change dating back to 2013 exam. Long-term stability would support a b enign etiology. IMPRESSION: No mammographic evidence of malignancy. If the clinical examination remains stable, recommend bilate ral mammogram in approximately one year. BIRADS 2: Benign Finding(s). FURTHER INFORMATION: According to the [employer], yearly mammograms are recommend ed starting at age 40 and continuing as long as a woman is in good health. Clinical Breast Exams shou ld be part of a periodic health exam-about every 3 years for women in their 20s and 30s and every yea r for women 40 and over. Breast self exam is an option for women starting in their 20s. Any breast ch juan francisco noted on a breast self exam should be reported promptly to the patient's healthcare provider. Br east MRI is recommended for women with an approximately 20-25% or greater lifetime risk of breast can cer, including women with a strong family history of breast or ovarian cancer and women who have been treated for Hodgkin's disease. A negative Mammography report should not discourage follow up or biopsy of a clinically significant f inding and/or abnormality. Dense breast tissue may obscure small neoplasms. The patient will be entered into a reminder system with a target due date for the next screening mamm ogram. Signer Name: Keanu Day MD Signed: 12/13/2019 2:48 PM Workstation Name: [id number]
== END 2019-12-13 09:48 | disposition home or self-care (01) ==
LOC: SPVWC 09:47
PROVIDERS: ATTEND Internal Medicine
DX: Z12.31 Encounter for screening mammogram for malignant neoplasm of breast (principal); N64.89 Other specified disorders of breast
CPT/HCPCS: 77067

== ENCOUNTER 2020-12-17 09:52 | Outpatient (CLI) | payer MEDICARE ==
--- NOTE | 2020-12-17 13:27 | Mammography Report ---
BILATERAL DIGITAL SCREENING MAMMOGRAM WITH CAD HISTORY: Screening mammogram. TECHNIQUE: Routine digital mammographic imaging performed. This examination was interpreted with chung hearn benefit of Computer-aided Detection analysis. COMPARISON: 12/13/2019, 12/05/2018, 11/30/2017. FINDINGS: Breast Density: heterogeneously dense breast parenchymal pattern which somewhat lessens the sensitivi ty of the evaluation. Digital CC and MLO views demonstrate no mammographic evidence of malignancy. Stable benign-appearing calcifications in both breasts. IMPRESSION: No mammographic evidence of malignancy. If the clinical examination remains stable, recommend bilate ral mammogram in approximately one year. BIRADS 2: Benign Finding(s). FURTHER INFORMATION: According to the [employer], yearly mammograms are recommend ed starting at age 40 and continuing as long as a woman is in good health. Clinical Breast Exams shou ld be part of a periodic health exam-about every 3 years for women in their 20s and 30s and every yea r for women 40 and over. Breast self exam is an option for women starting in their 20s. Any breast ch juan francisco noted on a breast self exam should be reported promptly to the patient's healthcare provider. Br east MRI is recommended for women with an approximately 20-25% or greater lifetime risk of breast can cer, including women with a strong family history of breast or ovarian cancer and women who have been treated for Hodgkin's disease. A negative Mammography report should not discourage follow up or biopsy of a clinically significant f inding and/or abnormality. Dense breast tissue may obscure small neoplasms. The patient will be entered into a reminder system with a target due date for the next screening mamm ogram. Signer Name: Keanu Day MD Signed: 12/17/2020 1:22 PM Workstation Name: [id number]
== END 2020-12-17 09:53 | disposition home or self-care (01) ==
LOC: SPVWC 09:52
PROVIDERS: ATTEND Internal Medicine
DX: Z12.31 Encounter for screening mammogram for malignant neoplasm of breast (principal)
CPT/HCPCS: 77067